=== PATIENT | female | born 1970 | race Caucasian/White ===

== ENCOUNTER 2022-04-30 05:21 | Inpatient (IN) | payer MEDICAID ==
[2022-04-30] MEDS ORDERED: Celecoxib 200 MG Cap PO ONE (06:00)
[2022-04-30] MEDS ORDERED: Scopolamine 1.5 MG Transdermal Patch TOP ONE (06:00)
[2022-04-30 06:02] LABS: HEMOGLOBIN A1C 7.4 % (4.5-6.2)
[2022-04-30] MEDS ORDERED: Albuterol/Ipratropium 3.0-0.5 MG/3 ML Neb Soln NEB ONE (06:30)
[2022-04-30] MEDS ORDERED: Dextrose 5%-Lactated Ringers 1,000 ML IV SCH ×2 (06:30→12:00)
[2022-04-30] MEDS ORDERED: Acetaminophen 500 MG Tab PO PRN ×2 (06:45→12:00)
[2022-04-30] MEDS ORDERED: Lidocaine 1% with EPINEPHrine 1:100,000 50 ML MDV ONE (06:54)
[2022-04-30] MEDS ORDERED: Bupivacaine 0.5% 50 ML MDV ONE (06:54)
[2022-04-30] MEDS ORDERED: Meropenem 500 MG SDV ONE (06:54)
[2022-04-30] MEDS ORDERED: Rocuronium 50 MG/5 ML Vial ONE (06:57)
[2022-04-30] MEDS ORDERED: Ondansetron 4 MG/2 ML SDV ONE (06:57)
[2022-04-30] MEDS ORDERED: Dexamethasone 4 MG/ML SDV ONE (06:57)
[2022-04-30] MEDS ORDERED: Neostigmine Methylsulfate 1 MG/ML 5 ML Syringe ONE ×2 (06:57→15:38)
[2022-04-30] MEDS ORDERED: Glycopyrrolate 0.2 MG/ML 5 ML MDV ONE ×2 (06:57→15:38)
[2022-04-30] MEDS ORDERED: Propofol 200 MG/20 ML SDV ONE (06:57)
[2022-04-30] MEDS ORDERED: Succinylcholine 200 MG/10 ML MDV ONE (06:57)
[2022-04-30] MEDS ORDERED: fentaNYL 250 MCG/5 ML SDV ONE ×3 (06:58→07:55)
[2022-04-30] MEDS ORDERED: cefOXitin 2 GM in Sodium Chloride 0.9% 50 ML IV ONE (07:00)
[2022-04-30] MEDS ORDERED: cefOXitin 2 GM Vial ONE (07:08)
[2022-04-30] MEDS ORDERED: Ketamine 500 MG/5 ML MDV IV SCH (07:30)
[2022-04-30] MEDS ORDERED: Ketamine 19 MG in Sodium Chloride 0.9% 19.81 ML IV SCH (07:30)
[2022-04-30] MEDS ORDERED: Ondansetron 4 MG/2 ML SDV IVPUSH ONE (10:03)
[2022-04-30] MEDS ORDERED: hydrOXYzine HCL 100 MG/2 ML SDV IM ONE (10:04)
[2022-04-30] MEDS ORDERED: 50% Dextrose in Water 50 ML Syringe IVPUSH PRN (10:32)
[2022-04-30] MEDS ORDERED: Glucagon,Human Recombinant 1 MG Vial IM PRN (10:32)
[2022-04-30] MEDS ORDERED: Insulin Lispro 100 Unit/ML 3 ML KwikPen SUBCUT ONE (10:32)
[2022-04-30] MEDS ORDERED: Cyclobenzaprine 10 MG Tab PO PRN (11:51)
[2022-04-30] MEDS ORDERED: hydrOXYzine HCL 100 MG/2 ML SDV IM PRN (12:00)
[2022-04-30] MEDS ORDERED: Metoclopramide 10 MG/2 ML SDV IVPUSH PRN (12:00)
[2022-04-30] MEDS ORDERED: HYDROmorphone 1 MG/ML Syringe IV PRN (12:00)
[2022-04-30] MEDS ORDERED: Labetalol 20 MG/4 ML Syringe IVPUSH PRN (12:00)
[2022-04-30] MEDS ORDERED: Ondansetron 4 MG/2 ML SDV IVPUSH PRN (12:00)
[2022-04-30] MEDS ORDERED: Albuterol/Ipratropium 3.0-0.5 MG/3 ML Neb Soln INH PRN (12:00)
[2022-04-30] MEDS ORDERED: oxyCODONE 5 MG Tab PO PRN (12:00)
[2022-04-30] MEDS ORDERED: HYDROmorphone 0.5 MG/0.5 ML Syringe IVPUSH PRN (12:00)
[2022-04-30] MEDS ORDERED: diphenhydrAMINE 50 MG/ML SDV IVPUSH PRN (12:00)
[2022-04-30] MEDS ORDERED: traMADol 50 MG Tab PO PRN (12:00)
[2022-04-30] MEDS: Lactated Ringers 1,000 ML IV SCH (12:21)
[2022-04-30] MEDS: cefOXitin 2 GM in Sodium Chloride 0.9% 50 ML IV SCH ×3 (12:21→23:52)
[2022-04-30] MEDS: Pantoprazole 40 MG Vial IVPUSH SCH (12:27)
[2022-04-30] MEDS ORDERED: Lactated Ringers 1,000 ML ONE (14:22)
[2022-04-30] MEDS: Albuterol/Ipratropium 3.0-0.5 MG/3 ML Neb Soln INH SCH ×2 (14:22→21:46)
[2022-04-30] MEDS: Acetaminophen 500 MG Tab PO SCH ×3 (14:58→21:37)
[2022-04-30] MEDS ORDERED: MVI, Adult with Vitamin K 10 ML, Thiamine 200 MG, Zinc/Copper/Manganese/Selenium 1 ML i... IV SCH ×4 (16:00)
[2022-04-30] MEDS: Insulin Lispro 100 Unit/ML 3 ML KwikPen SUBCUT SCH ×2 (16:10→21:59)
[2022-04-30] MEDS: Heparin Sodium 5,000 Units/ML Vial SUBCUT SCH (17:44)
[2022-04-30] MEDS: Azelastine Nasal Soln 30 ML Spray Bottle NAS SCH (21:37)
[2022-04-30] MEDS: Formoterol/Mometasone 200-5 MCG 8.8 GM Inhaler IH SCH (21:38)
[2022-04-30] MEDS: Ketotifen 0.025% Ophth Soln 5 ML Bottle EYEBOTH SCH (21:39)
[2022-05-01] MEDS: Lactated Ringers 1,000 ML IV SCH (00:35)
[2022-05-01] MEDS: Acetaminophen 500 MG Tab PO SCH ×2 (02:34→05:23)
[2022-05-01] MEDS ORDERED: Iopamidol 612 MG/ML 50 ML SDV PO STA (03:49)
[2022-05-01] MEDS: Insulin Lispro 100 Unit/ML 3 ML KwikPen SUBCUT SCH ×4 (04:39→22:10)
[2022-05-01] MEDS: Heparin Sodium 5,000 Units/ML Vial SUBCUT SCH ×2 (05:22→17:00)
[2022-05-01] MEDS: cefOXitin 2 GM in Sodium Chloride 0.9% 50 ML IV SCH ×3 (06:02→18:08)
[2022-05-01] MEDS: Albuterol/Ipratropium 3.0-0.5 MG/3 ML Neb Soln INH SCH ×4 (07:15→20:44)
[2022-05-01] MEDS: Formoterol/Mometasone 200-5 MCG 8.8 GM Inhaler IH SCH ×2 (07:15→20:44)
[2022-05-01] MEDS ORDERED: Lactated Ringers 1,000 ML IV SCH (08:15)
[2022-05-01] MEDS: Ketotifen 0.025% Ophth Soln 5 ML Bottle EYEBOTH SCH ×2 (08:53→20:44)
[2022-05-01] MEDS: Azelastine Nasal Soln 30 ML Spray Bottle NAS SCH ×2 (08:53→20:43)
[2022-05-01] MEDS: buPROPion 150 MG Tab.ER PO SCH (08:54)
[2022-05-01] MEDS: SCOPOLAMINE PATCH CHECK TOP SCH (08:54)
[2022-05-01] MEDS: Lisinopril 5 MG Tab PO SCH (08:54)
[2022-05-01] MEDS: Celecoxib 200 MG Cap PO SCH ×2 (08:54→20:44)
[2022-05-01] MEDS: Metoprolol Succinate 25 MG Tab.ER PO SCH (08:55)
[2022-05-01] MEDS ORDERED: CHECK SCOPALAMINE PATCH TOP SCH (09:00)
[2022-05-01] MEDS ORDERED: Acetaminophen Soln 650 MG/20.3 ML UD Cup PO SCH (10:00)
[2022-05-01] MEDS: Nystatin Susp 100,000 Unit/ML 5 ML UD Cup PO SCH ×3 (10:33→22:10)
[2022-05-01] MEDS: Pantoprazole 40 MG Vial IVPUSH SCH (12:45)
[2022-05-01] MEDS: Acetaminophen Soln 650 MG/20.3 ML UD Cup PO SCH ×2 (13:00→22:10)
[2022-05-01] MEDS ORDERED: MVI, Adult with Vitamin K 10 ML, Thiamine 200 MG, Zinc/Copper/Manganese/Selenium 1 ML i... IV SCH ×4 (16:00)
[2022-05-02] MEDS: Insulin Lispro 100 Unit/ML 3 ML KwikPen SUBCUT SCH ×2 (04:38→10:05)
[2022-05-02] MEDS: Heparin Sodium 5,000 Units/ML Vial SUBCUT SCH (05:11)
[2022-05-02] MEDS: Nystatin Susp 100,000 Unit/ML 5 ML UD Cup PO SCH ×2 (05:11→09:08)
[2022-05-02] MEDS: Acetaminophen Soln 650 MG/20.3 ML UD Cup PO SCH (05:11)
[2022-05-02] MEDS: Formoterol/Mometasone 200-5 MCG 8.8 GM Inhaler IH SCH (07:34)
[2022-05-02] MEDS: Albuterol/Ipratropium 3.0-0.5 MG/3 ML Neb Soln INH SCH (07:34)
[2022-05-02] MEDS ORDERED: Cyanocobalamin (Vitamin B12) 1,000 MCG/ML SDV IM ONE (09:00)
[2022-05-02] MEDS: Azelastine Nasal Soln 30 ML Spray Bottle NAS SCH (09:06)
[2022-05-02] MEDS: Ketotifen 0.025% Ophth Soln 5 ML Bottle EYEBOTH SCH (09:07)
[2022-05-02] MEDS: buPROPion 150 MG Tab.ER PO SCH (09:08)
[2022-05-02] MEDS: SCOPOLAMINE PATCH CHECK TOP SCH (09:08)
[2022-05-02] MEDS: Celecoxib 200 MG Cap PO SCH (09:08)
[2022-05-02] MEDS: Metoprolol Succinate 25 MG Tab.ER PO SCH (09:09)
[2022-05-02] MEDS: Lisinopril 5 MG Tab PO SCH (09:09)
== END 2022-05-02 10:30 | disposition home or self-care (01) | DRG 620 ==
LOC: JP.SDS 05:21 → EDSTATUS 07:15 → JP.SDSSCHI 09:30 → JP.MS 09:31
PROVIDERS: ADMIT Surgery; ATTEND Surgery
PROC: 0D194ZB Bypass Duodenum to Ileum, Percutaneous Endoscopic Approach (ICD-10-PCS; principal; 2022-04-30)
PROC: 0FB24ZX Excision of Left Lobe Liver, Percutaneous Endoscopic Approach, Diagnostic (ICD-10-PCS; 2022-04-30)
PROC: 0BQT4ZZ Repair Diaphragm, Percutaneous Endoscopic Approach (ICD-10-PCS; 2022-04-30)
PROC: 0DB64ZZ Excision of Stomach, Percutaneous Endoscopic Approach (ICD-10-PCS; 2022-04-30)
PROC: 0DB94ZZ Excision of Duodenum, Percutaneous Endoscopic Approach (ICD-10-PCS; 2022-04-30)
DX: E66.01 Morbid (severe) obesity due to excess calories (principal); F33.1 Major depressive disorder, recurrent, moderate; E11.40 Type 2 diabetes mellitus with diabetic neuropathy, unspecified; I10 Essential (primary) hypertension; J45.30 Mild persistent asthma, uncomplicated; F41.1 Generalized anxiety disorder; E78.5 Hyperlipidemia, unspecified; Z68.41 Body mass index [BMI] 40.0-44.9, adult; Z87.891 Personal history of nicotine dependence; Z90.49 Acquired absence of other specified parts of digestive tract; Z98.51 Tubal ligation status; Z79.4 Long term (current) use of insulin; Z88.1 Allergy status to other antibiotic agents; Z88.8 Allergy status to other drugs, medicaments and biological substances; Z80.3 Family history of malignant neoplasm of breast
CPT/HCPCS: 36415; 74240; 74240-26; 82947; 83036; 86850; 86900; 86901; 88305; 88307; 88313; 93005; 93010; 94640; A9270-GY; C9113; J0171; J0330; J0694; J1100; J1170; J1644; J1815; J2020; J2185; J2405; J2704; J2710; J2795; J3010; J3410; J3411; J3420; J3490; J7120; J7121; J7620; Q9967